=== PATIENT | female | born 1995 | race Caucasian/White ===

== ENCOUNTER 2021-02-25 18:26 | Emergency (ER) | payer OTHER ==
[~2021-02-25] VITALS: Ht 167.6 cm; Wt 61.2 kg
--- NOTE | 2021-02-25 18:52 | NUR ---
Dr Vela at bedside for MSE.
[2021-02-25] MEDS ORDERED: IV NS 1000 ML 1,000 ML IV ONE (19:00)
[2021-02-25] MEDS ORDERED: ONDANSETRON 4 MG/2 ML VIAL IV ONE (19:00)
--- NOTE | 2021-02-25 19:00 | NUR ---
Pt came from home co abdominal pain, nausea, vomiting, diarrhea, headache since tuesday. Denies any sob, cough, fever.
[2021-02-25 19:13] LABS: *BILIRUBIN,URIN NEGATIVE (NEGATIVE); *BLOOD, URINE 2+ (NEGATIVE); *CLARITY,URINE CLEAR (CLEAR); *COLOR,URINE YELLOW (YELLOW); *KETONES,URINE 1+ (NEGATIVE); *UROBILINOGEN,URINE 0.2 E.U./dl (NORMAL); LEUKOCYTE ESTERASE ,URINE TRACE (NEGATIVE); NITRITE, URINE NEGATIVE (NEGATIVE); PH,URINE 5.5 (5.0-8.0); UGLUCOSE NEGATIVE (NEGATIVE)
[2021-02-25 19:15] LABS: HEMATOCRIT 32.2 % (31.2-41.9); MEAN CORPUSCULAR HEMOGLOBIN 25.5 uug (24.7-32.8); PLATELET COUNT (AUTO) 191 K/uL (179-408)
[2021-02-25 19:17] LABS: *URINE HCG, QUAL NEGATIVE (NEGATIVE)
[2021-02-25] MEDS ORDERED: ONDANSETRON 4 MG/2 ML VIAL ONE (19:19)
[2021-02-25 19:20] LABS: CREATININE 0.7 mg/dL (0.6-1.3); POTASSIUM 3.7 mmol/L (3.5-5.1)
--- NOTE | 2021-02-25 19:20 | NUR ---
IV removed. Catheter intact and site benign. Pressure and 4x4 gauze applied to site. No bleeding noted.
--- NOTE | 2021-02-25 19:23 | NUR ---
Patient discharged to home in stable condition. Written and verbal after care instructions given. Patient verbalizes understanding of instructions. Stressed follow up or return to ER for worsening s/s. Vss. All belongings with pt.
[2021-02-25 19:34] LABS: BACTERIA,URINE MODERATE /HPF (NONE SEEN); SQUAMOUS EPITHELIAL CELL,UR MODERATE /HPF (NONE SEEN)
[2021-02-25 19:47] LABS: IRON, SERUM 14 ug/dL (50-175)
[2021-02-25 20:00] LABS: FERRITIN 18 ng/mL (8-252)
[2021-02-25] MEDS ORDERED: ONDA4TAB5 PO (20:17)
[2021-02-25] MEDS ORDERED: FERR325T28 PO (20:17)
[2021-02-25 20:48] VITALS: BP 123/86
== END 2021-02-25 19:25 | disposition home or self-care (01) ==
LOC: ER 18:27
DX: K52.9 Noninfective gastroenteritis and colitis, unspecified (principal); D50.9 Iron deficiency anemia, unspecified; E83.51 Hypocalcemia
CPT/HCPCS: 36415; 80048; 81001; 82728; 83550; 84703; 85025; 87086; 96374; 99284; J2405; A4663; J7030

== ENCOUNTER 2021-07-13 16:43 | Emergency (ER) | payer OTHER ==
[~2021-07-13] VITALS: Ht 170.2 cm; Wt 59.9 kg
[~2021-07-13 16:43] MED LIST: FERR325T28 PO; ONDA4TAB5 PO
[2021-07-13 17:55] LABS: *BILIRUBIN,URIN 1+ (NEGATIVE); *BLOOD, URINE 3+ (NEGATIVE); *CLARITY,URINE SLIGHTLY CLOUDY (CLEAR); *COLOR,URINE YELLOW (YELLOW); *KETONES,URINE 3+ (NEGATIVE); *UROBILINOGEN,URINE 0.2 E.U./dl (NORMAL); LEUKOCYTE ESTERASE ,URINE TRACE (NEGATIVE); NITRITE, URINE NEGATIVE (NEGATIVE); PH,URINE 5.5 (5.0-8.0); UGLUCOSE NEGATIVE (NEGATIVE)
[2021-07-13 17:56] LABS: *URINE HCG, QUAL NEG (NEGATIVE)
--- NOTE | 2021-07-13 18:51 | NUR ---
Patient discharged to home in stable condition. Written and verbal after care instructions given. Patient verbalizes understanding of instructions. Stressed follow up or return to ER for worsening s/s.
[2021-07-13 18:52] LABS: BACTERIA,URINE FEW /HPF (NONE SEEN); RBC,URINE 80-100 /HPF (0-3); SQUAMOUS EPITHELIAL CELL,UR MODERATE /HPF (NONE SEEN)
[2021-07-13] MEDS ORDERED: DOXY-226 PO (18:55)
[2021-07-13] MEDS ORDERED: DOXYCYCLINE HYCLATE 100 MG TABLET PO ONE (19:00)
== END 2021-07-13 18:59 | disposition home or self-care (01) ==
LOC: ER 16:45
DX: R39.15 Urgency of urination (principal); N39.0 Urinary tract infection, site not specified; N93.9 Abnormal uterine and vaginal bleeding, unspecified
CPT/HCPCS: 84703; 87086; A4663

== ENCOUNTER 2021-07-17 08:08 | Emergency (ER) | payer OTHER ==
[~2021-07-17] VITALS: Ht 167.6 cm; Wt 59.9 kg
[~2021-07-17 08:08] MED LIST changes: +DOXY-226 PO
[2021-07-17 08:26] LABS: *BILIRUBIN,URIN NEGATIVE (NEGATIVE); *BLOOD, URINE 3+ (NEGATIVE); *CLARITY,URINE CLEAR (CLEAR); *COLOR,URINE YELLOW (YELLOW); *KETONES,URINE NEGATIVE (NEGATIVE); *UROBILINOGEN,URINE 0.2 E.U./dl (NORMAL); LEUKOCYTE ESTERASE ,URINE 2+ (NEGATIVE); NITRITE, URINE NEGATIVE (NEGATIVE); UGLUCOSE NEGATIVE (NEGATIVE)
[2021-07-17 08:27] LABS: *URINE HCG, QUAL NEG (NEGATIVE)
--- NOTE | 2021-07-17 09:15 | NUR ---
Received pt from home 26 yrs female c/o vegnal discharge for 5 days dineses lower adominal pain pt was here on tuesday and had antibotic treament c/o discharge yellow with tinge of blood seen by dr. schmidt
--- NOTE | 2021-07-17 09:30 | NUR ---
PELVIC examine done and female nurse rn at bed side allen espinosa sent to lab dricharge yellow thick color minim lower abdominale pain
[2021-07-17] MEDS ORDERED: AZITHROMYCIN 250 MG TABLET PO ONE (10:30)
[2021-07-17] MEDS ORDERED: CEFTRIAXONE 500 MG VIAL IM ONE (10:30)
[2021-07-17] MEDS ORDERED: NITR100C11 PO (10:32)
[2021-07-17] MEDS ORDERED: AZITHROMYCIN 250 MG TABLET ONE (11:00)
--- NOTE | 2021-07-17 11:00 | NUR ---
rocephin 500mg im given and zthromycin 1000mg po given pt cooprative and understood
[2021-07-17] MEDS ORDERED: CEFTRIAXONE 500 MG VIAL ONE (11:01)
[2021-07-17] MEDS ORDERED: LIDOCAINE HCL 2% 20 ML VIAL ONE (11:02)
--- NOTE | 2021-07-17 11:27 | NUR ---
no allegic reaction after rocephine given d/c instraction and rx given to pt fully and verblized understood
[2021-07-17 11:30] VITALS: BP 105/60
[2021-07-17 11:49] LABS: BACTERIA,URINE FEW /HPF (NONE SEEN); SQUAMOUS EPITHELIAL CELL,UR MODERATE /HPF (NONE SEEN)
== END 2021-07-17 11:32 | disposition home or self-care (01) ==
LOC: ER 08:08
DX: N39.0 Urinary tract infection, site not specified (principal); Z87.440 Personal history of urinary (tract) infections
CPT/HCPCS: 81001; 84703; 87086; 87210; 96372; 99283; J0696; J3490; A4663; Q0144

== ENCOUNTER 2021-10-07 07:52 | Emergency (ER) | payer OTHER ==
[~2021-10-07] VITALS: Ht 167.6 cm; Wt 59.9 kg
[~2021-10-07 07:52] MED LIST changes: +NITR100C11 PO
--- NOTE | 2021-10-07 08:40 | NUR ---
[email or web address], medical screening exam in progress
[2021-10-07] MEDS ORDERED: predniSONE 50 MG TABLET PO ONE (09:30)
--- NOTE | 2021-10-07 09:30 | NUR ---
Patient wants to leave, MD notified.
[2021-10-07] MEDS ORDERED: predniSONE 50 MG TABLET ONE (09:39)
--- NOTE | 2021-10-07 09:41 | NUR ---
Verbal after care instructions were given by MD himself. Patient was discharged to home in stable condition with brisk steady gait. Patient verbalized understanding and compliance of instructions. Stressed follow up with primary doctor and ENT doctor or return to ER for worsening s/s.
== END 2021-10-07 09:39 | disposition home or self-care (01) ==
LOC: ER 07:52
DX: J02.8 Acute pharyngitis due to other specified organisms (principal); D50.9 Iron deficiency anemia, unspecified; Z79.899 Other long term (current) drug therapy
CPT/HCPCS: 86403; 99283; J7512; 87070; A4663

== ENCOUNTER 2022-06-01 15:42 | Emergency (ER) | payer OTHER ==
[~2022-06-01] VITALS: Ht 167.6 cm; Wt 59.0 kg
--- NOTE | 2022-06-01 16:13 | NUR ---
Strep and covid specimen delivered to lab.
--- NOTE | 2022-06-01 17:15 | NUR ---
DCd instructions given to pt. who verbalized understanding.
== END 2022-06-01 17:19 | disposition home or self-care (01) ==
LOC: ER 15:42
DX: J03.90 Acute tonsillitis, unspecified (principal); Z20.822 Contact with and (suspected) exposure to COVID-19
CPT/HCPCS: 86403; 87070; A4663

== ENCOUNTER 2023-10-09 08:42 | Emergency (ER) | payer OTHER ==
[~2023-10-09] VITALS: Ht 167.6 cm; Wt 61.2 kg
[2023-10-09 08:59] VITALS: O2SAT 100
[2023-10-09] MEDS ORDERED: AZITHROMYCIN 250 MG TABLET PO ONE (09:45)
[2023-10-09] MEDS ORDERED: predniSONE 50 MG TABLET PO ONE (09:45)
[2023-10-09] MEDS ORDERED: predniSONE 50 MG TABLET ONE (09:53)
[2023-10-09] MEDS ORDERED: AZITHROMYCIN 250 MG TABLET ONE (09:53)
[2023-10-09] MEDS ORDERED: PRED50TA PO (10:06)
[2023-10-09] MEDS ORDERED: AZIT500T PO (10:06)
[2023-10-09] MEDS ORDERED: PROM118S5 PO (10:06)
[2023-10-09 10:14] VITALS: BP 122/80; TEMP 97
== END 2023-10-09 10:15 | disposition home or self-care (01) ==
LOC: ER 08:44
DX: J18.9 Pneumonia, unspecified organism (principal); D50.9 Iron deficiency anemia, unspecified; Z79.899 Other long term (current) drug therapy
CPT/HCPCS: 99283; 71045; J7512; A4606; A4663; Q0144

== ENCOUNTER 2024-02-08 20:03 | Emergency (ER) | payer OTHER ==
[~2024-02-08] VITALS: Ht 167.6 cm; Wt 58.5 kg
[~2024-02-08 20:03] MED LIST changes: +AZIT500T PO; +PRED50TA PO; +PROM118S5 PO
[2024-02-08 20:05] VITALS: O2SAT 98
[2024-02-08] MEDS ORDERED: AZIT250T PO (20:36)
[2024-02-08] MEDS ORDERED: ERYT3.5O24 EACHEYE (20:36)
== END 2024-02-08 20:40 | disposition home or self-care (01) ==
LOC: ER 20:12
DX: J40 Bronchitis, not specified as acute or chronic (principal); H10.9 Unspecified conjunctivitis; Z79.899 Other long term (current) drug therapy
CPT/HCPCS: A4606; A4663

== ENCOUNTER 2024-03-27 15:40 | Emergency (ER) | payer OTHER ==
[~2024-03-27] VITALS: Ht 167.6 cm; Wt 58.5 kg
[~2024-03-27 15:40] MED LIST changes: +AZIT250T PO; +ERYT3.5O24 EACHEYE
[2024-03-27 16:17] VITALS: O2SAT 99
== END 2024-03-27 20:41 | disposition left against medical advice (07) ==
LOC: ER 15:41
DX: J02.9 Acute pharyngitis, unspecified (principal); Z53.21 Procedure and treatment not carried out due to patient leaving prior to being seen by health care provider; D50.0 Iron deficiency anemia secondary to blood loss (chronic); Z79.899 Other long term (current) drug therapy; Z79.52 Long term (current) use of systemic steroids; Z60.2 Problems related to living alone
CPT/HCPCS: A4606; A4663